=== PATIENT | male | born 1990 | race Caucasian/White ===

== ENCOUNTER 2020-04-04 10:16 | Emergency (ER) | payer OTHER ==
[2020-04-04 10:29] VITALS: BP 139/81; PULSE 90; TEMP 98; BMI 28.0
== END 2020-04-04 11:25 | disposition home or self-care (01) ==
LOC: JERFT 10:16 → JER 10:16 → JERFT 11:25
DX: S39.012A Strain of muscle, fascia and tendon of lower back, initial encounter (principal)
CPT/HCPCS: 99283-25